=== PATIENT | male | born 1965 | race Caucasian/White ===

== ENCOUNTER 2016-08-10 07:50 | Day surgery (SDC) | payer OTHER ==
[~2016-08-10] VITALS: Ht 193 cm; Wt 120.0 kg
[~2016-08-10 07:50] MED LIST: 0.9% Sodium Chloride 1,000 ML IV PRN; LEVO75TA4 PO; NITR30OI5 RC; Sodium Chloride LOK Flush 10 mL Syringe IV PRN; fentaNYL-PF 50 mCg/mL 2 mL Inj IVPUSH PRN
[2016-08-10 08:08] VITALS: BP 144/87; PULSE 78; RESP 16; O2SAT 99
[2016-08-10 09:04] VITALS: BP 115/69; PULSE 60; RESP 16; O2SAT 96
--- NOTE | 2016-08-10 09:04 | PCM.ENDCOL ---
Colonoscopy Date of Service: Aug 10, 2016 Physician Karri Moss MD Pre Procedure Diagnosis: Blood in the stools change in bowel patterns Post Procedure Dx & Findings: Hemorrhoids and anal fissure Procedure Colonoscopy Prep adequate Withdrawal 10 minutes PROCEDURE IN DETAIL: After rectal examination, Olympus video colonoscope was inserted patient's anal canal and advanced the cecum. Landmarks were identified including the ileocecal valve and appendiceal orifice. Scope was withdrawn systematically. The mucosa of the cecum, ascending, transverse, descending, sigmoid, rectal mucosa lined with whitish, pink, smooth, glistening, normal-appearing mucosa, normal fine branching, underlying vascularity, normal haustra. The patient tolerated procedure and was transported to observation area. In the rectum retroflexion was done showed hemorrhoids. Anal canal was inspected carefully and on the way out and hemorrhoids noted. However we saw 1 cm healing fissure. Surrounding scarring noted. Appear benign with clear margins. It appears healing. Impression Hemorrhoids Healing fissure 1 cm Recommendation Repeat colonoscopy in 10 years if there is no family history of colon cancer or polyp. Follow up in GI clinic 6 weeks continue MiraLAX and baby wipes. Presedation Assessment Risks and Benefits Informed consent was obtained from the patient after all risks and benefits including but not limited to drug reaction, infection, pain, bleeding, perforation, as well as alternatives were discussed. Patient monitoring Continuous pulse oximetry, cardiac monitoring, blood pressure monitoring, IV access, and oxygen at 2L per nasal cannula. Periprocedural Fentanyl: Fentanyl 75mcg Incrementally Midazolam: Midazolam 3mg Incrementally Complications There were no periprocedural complications identified. Post Procedure Plan Post Procedure Recommendations 1. Restrict activities today. 2. Resume normal activities in the morning. 3. Resume medications. 4. Patient informed of normal post procedure side effects as bloating, drowsiness, blood streaking in the stool. 5. average risk CRCS. If colon polyps come back as: -Hyperplastic- can repeat colonoscopy in 10 years -Tubular adenoma- repeat colonoscopy in 5 years -Tubulovillous/villous adenoma- repeat colonoscopy in 3 years -If any dysplasia- return to clinic as soon as possible 6. Please don't hesitate to call me with any questions. Karri Moss MD Aug 10, 2016 09:04
[2016-08-10 09:14] VITALS: BP 106/64; PULSE 62; RESP 16; O2SAT 97
[2016-08-10 09:20] VITALS: BP 124/76; PULSE 64; RESP 16; O2SAT 96
== END 2016-08-10 23:59 | disposition home or self-care (01) ==
LOC: END 07:50
PROVIDERS: ATTEND Internal Medicine
DX: R19.5 Other fecal abnormalities (principal); K60.2 Anal fissure, unspecified; K64.8 Other hemorrhoids; G25.81 Restless legs syndrome; G47.33 Obstructive sleep apnea (adult) (pediatric); F41.9 Anxiety disorder, unspecified
CPT/HCPCS: 45378; G0500; J2250; J3010; J7030

== ENCOUNTER 2017-01-05 16:28 | Emergency (ER) | payer OTHER ==
[~2017-01-05] VITALS: Ht 193 cm; Wt 120.5 kg
[~2017-01-05 16:28] MED LIST changes: -0.9% Sodium Chloride 1,000 ML IV PRN; -Sodium Chloride LOK Flush 10 mL Syringe IV PRN; -fentaNYL-PF 50 mCg/mL 2 mL Inj IVPUSH PRN
[2017-01-05 17:05] VITALS: BP 152/80; PULSE 58; RESP 12; O2SAT 98
[2017-01-05 17:42] LABS: BASOPHILS % (AUTO) 0.6 % (0-3); EOSINOPHILS % (AUTO) 1.3 % (0-5); MONOCYTES % (AUTO) 8.2 % (4-12); Mean Corpuscular Hemoglobin 31.5 pg (27.0-35.0); NEUTROPHILS % (AUTO) 59.1 % (40-74); Platelet Count 166 bil/L (150-400)
[2017-01-05 18:11] LABS: TROPONIN T < 0.010 ug/L (0.0-0.011)
--- NOTE | 2017-01-05 18:35 | DRSVH ---
PROCEDURE: X-RAY CHEST, TWO VIEWS ([id number]) INDICATIONS: chest pain TECHNIQUE: 2 views of the chest were acquired. COMPARISON: [facility], , CHEST 2VW, 05/11/2014, 0:42. FINDINGS: Surgical changes and devices: None. Lungs and pleura: No pleural effusions or pneumothorax. Lungs are clear. Mediastinum: Mediastinal contours are normal. Heart size is normal. Bones and chest wall: No suspicious bony abnormalities. Soft tissues appear unremarkable. IMPRESSION: No acute pulmonary process. Dictated by: Mariela Cheek M.D. on 01/05/2017 at 18:32 Approved by: Mariela Cheek M.D. on 01/05/2017 at 18:33
--- NOTE | 2017-01-05 20:54 | ED.REPORT ---
HPI-Trauma Multiple Date of Service Jan 05, 2017 ED Provider: Doc,Ed MD Nursing Notes Stated Complaint: CHEST PAIN,RIGHT SIDE Chief Complaint: Chest Pain-Non Cardiac Nature Allergies: Coded Allergies: No Known Allergies (Verified Allergy, Mild, 08/10/16) Scheduled Levothyroxine (Levothyroxine) 75 Mcg Tablet 75 MCG PO DAILY Nitroglycerin (Rectiv) 30 Gm Oint...g. 30 GM RC BID Past Medical History Past Medical History 1. Obstructive sleep apnea. 2. Hypothyroidism. 3. High cholesterol. Past Surgical History Jaw alignment surgery. Family History His father had two myocardial infarctions and CHF. One uncle of congestive heart failure. His mother had breast cancer. 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 [employer] Resume Physical Exam Initial Vital Signs Vital Signs (First) Date Time Temp Pulse Resp B/P Pulse Ox O2 Delivery O2 Flow Rate FiO2 01/05/17 17:05 36.9 58 12 152/80 98 01/05/17 22:31 Room Air Interpretation & Diagnostics Lab Results Interpretation Result Diagram: 01/05/17 1733 01/05/17 1733 Test 01/05/17 17:33 White Blood Count 6.3th/mm3 (3.8-10.1) Red Blood Count 4.98mil/mm3 (4.40-5.80) Hemoglobin 15.7g/dL (13.8-17.2) Hematocrit 44.3% (41.0-50.0) Mean Corpuscular Volume 89.0fL (81-100) Mean Corpuscular Hemoglobin 31.5pg (27.0-35.0) Mean Corpuscular Hemoglobin Concent 35.4% (32.0-37.0) Red Cell Distribution Width 12.3% (12.3-15.4) Platelet Count 166bil/L (150-400) Neutrophils (%) (Auto) 59.1% (40-74) Lymphocytes (%) (Auto) 30.6% (14-46) Monocytes (%) (Auto) 8.2% (4-12) Eosinophils (%) (Auto) 1.3% (0-5) Basophils (%) (Auto) 0.6% (0-3) Sodium Level 136mEq/L (134-144) Potassium Level 4.1mEq/L (3.5-5.2) Chloride Level 101mEq/L (97-108) Carbon Dioxide Level 21mmol/L (18-29) Blood Urea Nitrogen 20mg/dL (6-24) Creatinine 0.74mg/dL (0.76-1.27) Estimat Glomerular Filtration Rate 119mL/min (>59) Glucose Level 169mg/dL (60-99) Calcium Level 9.5mg/dL (8.5-10.1) Magnesium Level 2.0mg/dL (1.6-2.6) Total Bilirubin 0.3mg/dL (0.0-1.2) Aspartate Amino Transf (AST/SGOT) 33U/L (0-50) Alanine Aminotransferase (ALT/SGPT) 52U/L (0-44) Alkaline Phosphatase 54U/L (25-150) Troponin T < 0.010ug/L (0.0-0.011) Total Protein 8.1g/dL (6.4-8.4) Albumin 4.7g/dL (3.4-5.0) Hold Kim Top Tube Received (Received) Discharge & Departure Referrals: Saran Anderson MD (PCP) Dann Richards MD Jan 05, 2017 20:54
--- NOTE | 2017-01-05 21:35 | ED.REPORT ---
HPI-Chest Pain 40 and Over Date of Service Jan 05, 2017 ED Provider: Dann Richards MD Pt is a 51 y/o male w/ a hx of HLD presenting to the ED c/o intermittent sharp R -sided CP w/ radiation to the back onset about 5 days ago. His pain is worse with deep breaths and is currently not occurring at time of interview. The patient went to Urgent Care to be checked out and was told to come to the ED. Pt denies SOB, nausea, vomiting, diaphoresis. He denies a hx of DVT or PE. The patient was admitted for ACS workup 3 years ago and had a negative workup. The patient also performs regular cardio exercises without experiencing any symptoms. Nursing Notes Stated Complaint: CHEST PAIN,RIGHT SIDE Chief Complaint: Chest Pain-Non Cardiac Nature Nursing Notes Reviewed: Yes Allergies: Coded Allergies: No Known Allergies (Verified Allergy, Mild, 08/10/16) Scheduled Levothyroxine (Levothyroxine) 75 Mcg Tablet 75 MCG PO DAILY Nitroglycerin (Rectiv) 30 Gm Oint...g. 30 GM RC BID General Time Seen by MD: 21:09 Chief Complaint Chest pain Hx Obtained From: Patient Arrived By: Walk-in Sudden in Onset?: No Onset Occurred: 4 days ago Symptom Duration: Intermittent Location: : Chest right Quality: Painful, Sharp Radiation: : Back Severity: Current: No pain currently Severity: Maximum: Moderate Similar Sx Previous: No Risk Factors PERC Rule PERC Result: PERC rule satisfied Past Medical History Past Medical History 1. Obstructive sleep apnea. 2. Hypothyroidism. 3. High cholesterol. Past Surgical History Jaw alignment surgery. Family History His father had two myocardial infarctions and CHF. One uncle of congestive heart failure. His mother had breast cancer. 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 Physical Exam Initial Vital Signs Vital Signs (First) Date Time Temp Pulse Resp B/P Pulse Ox O2 Delivery O2 Flow Rate FiO2 01/05/17 17:05 36.9 58 12 152/80 98 01/05/17 22:31 Room Air Initial VS: Reviewed, Vital signs normal Head / Eyes: Atraumatic, Normocephalic, PERRL ENT: Mucous membranes moist, Conjunctiva normal, No scleral icterus Neck: Supple, Full range of motion Extremities: Vascular intact, Neuro intact, No swelling Skin: Warm, Dry, No cyanosis Neurologic: Alert, Oriented, Nonfocal Psychiatric: Mood/affect normal, Behavior normal, Normal thought content General/Constitutional: Awake, Alert, No acute distress, Well appearing, Well developed, Well hydrated, Well nourished, Cooperative, Not toxic appearing Respiratory / Chest: Breath sounds NL, Breath sounds = bilat, No respiratory distress, No rales, No rhonchi, No wheezing, No retractions, No stridor, No chest tenderness, No chest wall deformity Cardiovascular: Heart rate NL, Regular rhythm, Heart sounds NL, No gallop, No murmurs, No rubs Abdomen: Atraumatic, Soft, Non-tender, No guarding, No rebound, No distention, No palpable mass Interpretation & Diagnostics Lab Results Interpretation Result Diagram: 01/05/17 1733 01/05/17 1733 Test 01/05/17 17:33 White Blood Count 6.3th/mm3 (3.8-10.1) Red Blood Count 4.98mil/mm3 (4.40-5.80) Hemoglobin 15.7g/dL (13.8-17.2) Hematocrit 44.3% (41.0-50.0) Mean Corpuscular Volume 89.0fL (81-100) Mean Corpuscular Hemoglobin 31.5pg (27.0-35.0) Mean Corpuscular Hemoglobin Concent 35.4% (32.0-37.0) Red Cell Distribution Width 12.3% (12.3-15.4) Platelet Count 166bil/L (150-400) Neutrophils (%) (Auto) 59.1% (40-74) Lymphocytes (%) (Auto) 30.6% (14-46) Monocytes (%) (Auto) 8.2% (4-12) Eosinophils (%) (Auto) 1.3% (0-5) Basophils (%) (Auto) 0.6% (0-3) Sodium Level 136mEq/L (134-144) Potassium Level 4.1mEq/L (3.5-5.2) Chloride Level 101mEq/L (97-108) Carbon Dioxide Level 21mmol/L (18-29) Blood Urea Nitrogen 20mg/dL (6-24) Creatinine 0.74mg/dL (0.76-1.27) Estimat Glomerular Filtration Rate 119mL/min (>59) Glucose Level 169mg/dL (60-99) Calcium Level 9.5mg/dL (8.5-10.1) Magnesium Level 2.0mg/dL (1.6-2.6) Total Bilirubin 0.3mg/dL (0.0-1.2) Aspartate Amino Transf (AST/SGOT) 33U/L (0-50) Alanine Aminotransferase (ALT/SGPT) 52U/L (0-44) Alkaline Phosphatase 54U/L (25-150) Troponin T < 0.010ug/L (0.0-0.011) Total Protein 8.1g/dL (6.4-8.4) Albumin 4.7g/dL (3.4-5.0) Hold Kim Top Tube Received (Received) ECG Interpretation ECG Interpretation: Sinus rhythm rate 58 Borderline prolonged WA interval Probable LAE Normal early repol pattern Time: 22:05 Interpreted by: ED physician Normal ECG Interpretation: No acute ischemic changes, No change from prior ECGs X-Ray Chest Interpretation Chest Xray Interpretation: IMPRESSION: No acute pulmonary process. Dictated by: Mariela Cheek M.D. on 01/05/2017 at 18:32 Approved by: Mariela Cheek M.D. on 01/05/2017 at 18:33 View: Portable, AP & lat Interpretation / Wet Read by: Interpret - Radiologist Re-Eval/Medical Decision Med Decision/Clinical Course Discussed with pt that given the nature of his symptoms most likely dx is costochrondritis, and that acs has been exluded here as well as pulmonary embolus by PERC rule. Given that he runs 7 miles at a time multiple times each week he is very low risk for anginal chest pain. Pt notes a normal stress test 3 years ago with some similar chest pain. He is reassured by our workup and plans to f/u with PCP Saran Anderson next week. Advised him to take NSAIDS as needed for his chest pain. Time of Eval: 22:06 Re-Evaluation/Progress Note: Pt rechecked. Informed pt of plan for treatment. Pt understands and agrees with plan for treatment. F/U instructions and RTER warnings given. All questions addressed. Counseled Regarding: Diagnosis, Lab results, Need for follow-up, When/why to return to ED Discharge & Departure Primary Impression: Chest pain with low risk for cardiac etiology Disposition: Home Discharge Condition All VS Reviewed: Yes Condition: Improved Patient Instructions: Chest Pain (ED) Additional Instructions: Thank you for seeking care at the emergency room. It is difficult for us to make definitive diagnoses in the ED but we believe that you are experiencing musculoskeletal chest pain. Our primary goal today in the Emergency Department was to evaluate you for any life-threatening conditions. Your evaluation was reassuring. Labs, chest x-ray, and EKG today were all normal. Considering your history, you are very low risk for cardiac disease or blood clot. I recommend taking Ibuprofen or Tylenol as directed for pain. You should follow-up with your primary doctor in the next week. You should return to the Emergency Department immediately if you develop fevers , vomiting, shortness of breath, worsening or persistent chest pain or pressure , lightheadedness, or any other concerning signs or symptoms. Thank you for letting us partake in your care today. Referrals: Saran Anderson MD (PCP) Scribe Attestation Portions of this note were transcribed by Luis Alberto Owens. I, Dr. Jiménez personally performed the history, physical exam and medical decision-making; I reviewed and confirmed the accuracy of the information in the transcribed note. Signed by Preston Day, 01/05/172199 copies to: Saran Andesron MD, Gary R DO Jan 05, 2017 21:35 LUIS ALBERTO OWENS Jan 05, 2017 21:59
[2017-01-05 22:31] VITALS: BP 142/88; PULSE 60; RESP 16; O2SAT 98
== END 2017-01-05 22:32 | disposition home or self-care (01) ==
LOC: SED 16:28
DX: R07.89 Other chest pain (principal); E03.9 Hypothyroidism, unspecified; E78.5 Hyperlipidemia, unspecified